=== PATIENT | male | born 1950 | race Caucasian/White ===

== ENCOUNTER 2018-05-24 06:41 | Day surgery (SDC) | payer MEDICARE ==
[2018-05-17 15:05] VITALS: BMI 29.5
[~2018-05-24 06:41] MED LIST: LACTATED RINGERS 1,000 ML IV SCH; MOXIFLOXACIN HCL 0.5% DROPS 3 ML BTL OP ONE; TETRACAINE 0.5% OPHTH (PF) DROPS 4 ML BTL OP ONE; TIMOLOL 0.5% OPHTH DROPS 5 ML BTL OP ONE
[2018-05-24] MEDS: CYCLOPENTOLATE 1% OPHTH SOLN 2 ML BTL OP ONE ×3 (07:06→07:21)
[2018-05-24] MEDS: PHENYLEPHRINE 2.5% OPHTH DRP 2ML OP NR ×3 (07:09→07:25)
[2018-05-24 07:20] VITALS: RESP 16; TEMP 96.7
[2018-05-24] MEDS ORDERED: LIDOCAINE 1% 20 ML VIAL (10MG/ML) FOR IV START INTRADERMA ONE (07:20)
[2018-05-24] MEDS ORDERED: MIDAZOLAM 2 MG/2 ML VIAL ONE (08:12)
[2018-05-24] MEDS ORDERED: fentaNYL (PF) 50 MCG/ML 2 ML AMP ONE (08:12)
[2018-05-24] MEDS ORDERED: HYALURONATE SODIUM INTRAOCULAR 1 EACH SYRINGE (12MG/ML) INTRAOCULA ONE (08:25)
[2018-05-24] MEDS ORDERED: BALANCED SALT IRRIG SOLN COMB2 15 ML IRRIG.SOLN IRRIGATION ONE (08:26)
[2018-05-24] MEDS ORDERED: LIDOCAINE 1% (PF) 10MG/ML VIAL SQ ONE (08:26)
[2018-05-24] MEDS ORDERED: EPINEPHrine (PF) 0.3 ML in BALANCED SALT IRRIG SOLN COMB2 500 ML IRRIGATION ONE (08:26)
--- NOTE | 2018-05-24 08:45 | P.OP ---
Date of Procedure: 05/24/18 Preoperative Diagnosis: NS Postoperative Diagnosis: same Procedure(s) Performed: PIOL, OS Implants: PCB00 22.50 Anesthesia: MAC Surgeon: Eddie Ponce Estimated Blood Loss (ml): 0 Pathology: none sent Condition: stable Disposition: same day Indications for Procedure: blurry vision Operative Findings: No complications
[2018-05-24 08:46] VITALS: PULSE 61
[2018-05-24 09:06] VITALS: BP 131/85
--- NOTE | 2018-05-24 12:27 | OP ---
OPERATIVE REPORT DATE OF SERVICE: 05/24/2018. PROCEDURE: Phacoemulsification of cataract and intraocular lens implant of the left eye. PREOPERATIVE DIAGNOSIS: Nuclear sclerosis. POSTOPERATIVE DIAGNOSIS: Nuclear sclerosis ESTIMATED BLOOD LOSS:: Zero. SPECIMEN TAKEN:: None. NARRATIVE:: After obtaining the appropriate consent, the patient was brought to the Operating Room where the patient was placed under cardiac monitoring and prepped and draped in the usual sterile manner. At the 5 o'clock position a 15 degree super sharp blade was used to create a paracentesis followed by instillation of 1% Xylocaine MPF 50:50 mix with BSS into the anterior chamber. This was followed by Amvisc to stabilize the anterior chamber. At the 3 o'clock position, a self-sealing corneal flap incision was created using 2.8 mm victorino keratome. A cystatome was used to initiate a continuous tear capsulorrhexis which was completed with the Utrata forceps. A Binkhorst cannula was used to hydrodissect the lens nucleus followed by hydrodelineation. Phacoemulsification of the lens was performed utilizing phacochop in 16.91 seconds at 18% power. The remaining cortical material was removed using the irrigation aspiration mode followed by additional 1% Xylocaine MPF into the anterior chamber followed by viscoelastic to stabilize the capsular bag. An posterior chamber lens was placed into the capsular bag without difficulty. The remaining viscoelastic material was removed from the anterior chamber with the irrigation/aspiration. Balanced salt solution was used to normalize the intraocular pressure. The incision was checked for watertight integrity. The patient then received two drops of 0.5% timolol followed by two drops Vigamox, was lightly patched and shielded in the usual manner. There were no complications from the procedure. The patient tolerated the procedure well and was returned to recovery in good condition. MMODL / IJN: [id number] /
== END 2018-05-24 09:16 | disposition home or self-care (01) ==
LOC: OR 06:41
PROVIDERS: ATTEND Ophthalmology
DX: H25.12 Age-related nuclear cataract, left eye (principal); H52.03 Hypermetropia, bilateral; H52.4 Presbyopia; Z96.1 Presence of intraocular lens; I10 Essential (primary) hypertension; F32.9 Major depressive disorder, single episode, unspecified; M46.00 Spinal enthesopathy, site unspecified; G47.30 Sleep apnea, unspecified; M19.90 Unspecified osteoarthritis, unspecified site; H91.90 Unspecified hearing loss, unspecified ear; Z87.891 Personal history of nicotine dependence; F41.9 Anxiety disorder, unspecified; Z79.899 Other long term (current) drug therapy; Z88.0 Allergy status to penicillin
CPT/HCPCS: 66984; C1780; J2250; J0171; J3010; J2001

== ENCOUNTER → 2022-03-30 | Outpatient (CLI) | payer MEDICARE ==
--- NOTE | 2022-03-30 14:46 | P.SLEEP ---
History of Present Illness H&P Date: 03/30/22 Chief Complaint: LISY 72-year-old male patient, coming to see me regarding his obstructive sleep apnea. This is a reevaluation visitation. The patient was diagnosed having LISY many years back and currently is and she is not taking his CPAP machine. He is currently using a ResMed S9 series which is and all degeneration CPAP unit. The machine is functional. He is currently set at a pressure of 10 cm of water. He has eliminated the humidification chamber. More recently, his machine is malfunctioning and the patient is very much interested in updating his CPAP unit. While on treatment, the patient has been effectively treated. He goes to bed around 10 PM, wakes up 7:30 AM in the morning and is feeling refreshed and alert during the day. No issues with memory or concentration. No issues with chest pain. His current [place] score is 4. He is able to function during the day. No episodes of falling asleep while driving. No sleep paralysis. No hallucinations. No cataplexy. No recent weight gain.. The patient sees a industrial tractor driver out of [facility], Dr. Marvin, he has episodic palpitations. No history of any atrial fibrillation. He is maintained on metoprolol. No grinding of the teeth. No episodes of waking up in the middle of the night ch oking or gasping for air. Occasional naps during the day. Review of Systems Constitutional: Denies chills, Denies fever Eyes: denies as per HPI, denies blurred vision, denies bulging eye, denies decreased vision, denies diplopia, denies discharge, denies dry eye, denies irritation, denies itching, denies pain, denies photophobia, denies loss of peripheral vision, denies loss of vision, denies tunnel vision/blind spots Ears: bilateral: decreased hearing, deny: ear discharge, earache, tinnitus Ears, nose, mouth and throat: Reports as per HPI Breasts: absent: as per HPI, gynecomastia Cardiovascular: Reports as per HPI Respiratory: Reports as per HPI Gastrointestinal: Reports as per HPI Genitourinary: Reports as per HPI Musculoskeletal: Reports as per HPI Musculoskeletal: absent: ankle pain, ankle stiffness, ankle swelling Integumentary: Reports as per HPI Neurological: Reports as per HPI Psychiatric: Reports as per HPI Endocrine: Reports as per HPI Hematologic/Lymphatic: Reports as per HPI Allergic/Immunologic: Reports as per HPI Past Medical History Past Medical History: Eye Disorder, Hypertension, Sleep Apnea/CPAP/BIPAP Additional Past Medical History / Comment(s): irregular heart rate, has cpap machine, amada cataracts, the patient is extremely hard of hearing History of Any Multi-Drug Resistant Organisms: None Reported Past Surgical History: Cholecystectomy, Hernia Repair, Orthopedic Surgery Additional Past Surgical History / Comment(s): amada knee repair meniscus, cataract removed right eye 05-10-18 Past Anesthesia/Blood Transfusion Reactions: Previous Problems w/ Anesthesia Additional Past Anesthesia/Blood Transfusion Reaction / Comment(s): "pulse slowed way down during anesthesia with hernia surgery and after colonoscopy" Past Psychological History: Depression Past Alcohol Use History: None Reported Additional Past Alcohol Use History / Comment(s): smoked 10 years <1ppd quit in the 's Past Drug Use History: None Reported - Past Family History Mother Family Medical History: No Reported History Medications and Allergies Home Medications Medication Instructions Recorded Confirmed Type Citalopram Hydrobromide [CeleXA] 20 mg PO HS 04/05/14 05/17/18 History ALPRAZolam [Xanax] 0.5 mg PO DAILY PRN 05/05/18 05/17/18 History Cholecalciferol [Vitamin D3] 5,000 unit PO DAILY 05/05/18 05/17/18 History Cyanocobalamin (Vitamin B-12) 1,000 mcg PO DAILY 05/05/18 05/17/18 History [Vitamin B-12] Loratadine [Claritin] 10 mg PO DAILY PRN 05/05/18 05/17/18 History Multivitamins, Thera [Multivitamin 1 tab PO DAILY 05/05/18 05/17/18 History (formulary)] lisinopriL [Zestril] 10 mg PO HS 05/05/18 05/17/18 History Docusate [Colace] 100 mg PO DAILY 05/17/18 05/17/18 History Allergies Allergy/AdvReac Type Severity Reaction Status Date / Time Penicillins Allergy Unknown Verified 05/24/18 06:53 Physical Exam BP is 148/87 with a pulse of 62 and respiration of 18 with a temperature 97.1 degrees. Weight is 245 pounds. Height is 6 feet and 1 inch. Body mass index is 32.3 and the pulse ox is 97% on room air oxygen. Gen. appearance the patient is calm and comfortable, not in acute distress The patient appeared well nourished and normally developed. Vital signs as documented. Head exam is unremarkable. No scleral icterus or corneal arcus noted . Neck is without jugular venous distension, thyromegaly, or carotid bruits. Carotid upstrokes are brisk bilaterally. Lungs are clear to auscultation and percussion. Cardiac exam reveals the PMI to be normally sized and situated. Rhythm is regular. First and second heart sounds normal. No murmurs, rubs or gallops. Abdominal exam reveals normal bowel sounds, no masses, no organomegaly and no aortic enlargement. Extremities are nonedematous and both femoral and pedal pulses are normal.Examination of the skin revealed no evidence of significant rashes, suspicious appearing nevi or other concerning lesions.Neurologically, the patient is awake and alert and the patient does not have any focal neurological deficit. Cranial nerves are essentially intact. Assessment and Plan Plan: Obstructive sleep apnea, maintained on CPAP therapy at a pressure of 10 cm of water. He has an older generation ResMed S9 which is being utilized at the pressure of 10 cm of water. He is also using a garces LT medium size nasal pillows. Chronic hypersomnia secondary to above, improved Palpitations maintained on metoprolol Chronic anxiety/depression mainly on examination Celexa and Xanax Chronic sinus disease Plan Interviewed the patient Patient is committed for long-term CPAP therapy His machine needs to be updated We'll do a home sleep study to reestablish the diagnoses and the severity and following that will offer the patient a new CPAP unit Encourage weight loss Maintain sleep hygiene measures Continue same medications for now Weight-loss We'll continue to follow Time with Patient: Greater than 30 Sleep Note - Sleep Note Sleep Note: Temperature: Pulse Rate: Respiratory Rate: Blood Pressure: SpO2: Height: Weight: BMI: Neck Circumference:
== END | disposition home or self-care (01) ==
LOC: SLEEP 13:40
PROVIDERS: ATTEND Internal Medicine Critical Care Medicine
DX: G47.33 Obstructive sleep apnea (adult) (pediatric) (principal); G47.10 Hypersomnia, unspecified; R00.2 Palpitations; J32.9 Chronic sinusitis, unspecified
CPT/HCPCS: 99202

== ENCOUNTER → 2022-06-01 | Outpatient (CLI) | payer MEDICARE ==
--- NOTE | 2022-06-01 15:18 | P.PN ---
Progress Note - Text Progress Note Date: 06/01/22 This is a 72-year-old male patient was coming in for a follow-up regarding his new CPAP unit. The patient was given a newer generation ResMed 11 and the patient is coming in for a compliancy check. His current CPAP pressure is at 10 cm of water and the patient is using the air fit P 10 nasal pillows. The patient is looking for alternative mask as the fellow is irritating his nostrils. I offered the from the options for this patient. Meanwhile, I checked the machine. The humidity level is at 2. EPR is at 3. The patient has been utilizing the machine every night. No major hypersomnia or sleepiness during the day. The patient has used the machine more than 4 hours 100% of the time. The leak is in order of 16 L/m. AHI is down to 10.9 while on treatment and a central apnea index of 9.7 was also noted. His heart rate is irregular and I do have a suspicion that the patient has some residual central apnea due to his chronic itch of fibrillation. No angina. No palpitations. He remains on metoprolol. His treatment response is adequate. His [place] score is at 3. No other new complaints otherwise for now BP is 151/80 with a pulse of 81 and the respiration of 16 with a temperature of 97.5. Weight is 242 pounds. [place] score is at 3 The patient appeared well nourished and normally developed. Vital signs as documented. Head exam is unremarkable. No scleral icterus or corneal arcus noted. Neck is without jugular venous distension, thyromegaly, or carotid bruits. Carotid upstrokes are brisk bilaterally. Lungs are clear to auscultation and percussion. Cardiac exam reveals the PMI to be normally sized and situated. Rhythm is irregular. First and second heart sounds normal. No murmurs, rubs or gallops. Abdominal exam reveals normal bowel sounds, no masses, no organomegaly and no aortic enlargement. Extremities are nonedematous and both femoral and pedal pulses are normal. Examination of the skin revealed no evidence of significant rashes, suspicious appearing nevi or other concerning lesions.Neurologically, the patient is awake and alert and the patient does not have any focal neurological deficit. Cranial nerves are essentially intact. Assessment sleep apnea, a combination of obstructive, mixed, central, predominantly obstructive over. The apnea popping index was 18 and the patient currently is utilizing CPAP at pressure of 10 cm of water Chronic hypersomnia, improved and [place] score is down to 3 History of palpitations/possibly a chest fibrillation maintained on metoprolol Chronic sinus disease Chronic anxiety/depression Plan Treatment is successful. I noted the patient is still having some mild central events which is essentially not eliminated with a regular CPAP. Obstructive events are essentially resolved and the patient is compliant. As such, I suggest getting CPAP therapy the same level of pressure. I'm going to offer this patient alternative masks including the airfit N30 and N30 i and the patient will let me know if this is something that he would like to use in the future. His treatment is successful. I'll see the patient in my office in one year's time.
== END ==
LOC: SLEEP 14:08
PROVIDERS: ATTEND Internal Medicine Critical Care Medicine
DX: G47.33 Obstructive sleep apnea (adult) (pediatric) (principal); G47.31 Primary central sleep apnea; J32.9 Chronic sinusitis, unspecified; F41.9 Anxiety disorder, unspecified; F32.A Depression, unspecified; Z99.89 Dependence on other enabling machines and devices; Z88.0 Allergy status to penicillin; Z87.891 Personal history of nicotine dependence